=== PATIENT | female | born 1980 | race Two or more races ===

== ENCOUNTER 2022-06-01 16:36 | Emergency (ER) | payer OTHER ==
[~2022-06-01] VITALS: Ht 152.4 cm; Wt 50.8 kg
[2022-06-02] MEDS ORDERED: CEPHALEXIN500 MG PO (04:15)
[2022-06-02] MEDS ORDERED: KETO10TA2 PO (04:15)
== END 2022-06-02 04:22 ==
LOC: ER 16:36
DX: N20.0 Calculus of kidney (principal); N39.0 Urinary tract infection, site not specified; R10.9 Unspecified abdominal pain

== ENCOUNTER 2022-09-28 14:55 | Emergency (ER) | payer OTHER ==
[~2022-09-28] VITALS: Ht 157.5 cm; Wt 64.4 kg
[~2022-09-28 14:55] MED LIST: CEPHALEXIN500 MG PO; KETO10TA2 PO
== END 2022-09-28 19:00 | disposition home or self-care (01) ==
LOC: ER 14:55
DX: S92.515A Nondisplaced fracture of proximal phalanx of left lesser toe(s), initial encounter for closed fracture (principal); X58.XXXA Exposure to other specified factors, initial encounter; Y93.9 Activity, unspecified; Y92.89 Other specified places as the place of occurrence of the external cause; Y99.9 Unspecified external cause status